=== PATIENT | male | born 1995 | race Hispanic/Latino ===

== ENCOUNTER 2017-03-28 21:30 | Emergency (ER) | payer BC ==
[2017-03-28] MEDS ORDERED: Ondansetron ODT 4 MG TAB ONE (21:47)
[2017-03-28] MEDS ORDERED: Acetaminophen 500 MG TAB ONE (21:50)
== END 2017-03-28 23:30 | disposition home or self-care (01) ==
LOC: ERS 21:30
DX: J11.1 Influenza due to unidentified influenza virus with other respiratory manifestations (principal); F17.210 Nicotine dependence, cigarettes, uncomplicated
CPT/HCPCS: 87804; 99283; Q0162

== ENCOUNTER 2018-12-26 13:07 | Observation (INO) | payer BC ==
[2018-12-26 13:56] LABS: Bacteria/HPF None Seen HPF (None Seen); Bilirubin Negative (Negative); Blood, Urine Negative (Negative); Clarity Clear (Clear); Glucose, Urine (Dipstick) Normal (Negative); Leukocyte Negative Leu/uL (Negative); Nitrite Negative (Negative); Protein, Urine (Dipstick) 30 mg/dL (Neg-Trace); RBC/HPF 0-3 HPF (0-3); Squamous Epithelial 0-3 HPF (0-3); Urobilinogen Normal mg/dL (Less than 2); WBC/HPF 0-3 HPF (0-3)
[2018-12-26] MEDS ORDERED: Acetaminophen 500 MG TAB ONE (13:59)
[2018-12-26 14:13] LABS: Mean Corpuscular HGB CONC 33.2 g/dL (32.0-36.0); Mean Corpuscular Hemoglobin 28.1 pg (27.0-31.0); Mean Corpuscular Volume 84.6 fL (78.0-98.0); Mean Platelet Volume 7.9 fL (7.4-10.4); Platelet Count 328 thou/uL (130-400); RBC Distribution Width 14.9 % (11.5-14.5); Red Blood Cell (RBC) Count 6.04 mill/uL (4.70-6.10); White Blood Cell (WBC) Count 20.8 thou/uL (4.8-10.8)
[2018-12-26 14:29] LABS: ALT (SGPT) 51 U/L (8-55); AST (SGOT) 36 U/L (5-34); Alkaline Phosphatase 83 U/L (40-110); Anion Gap 14 mmol/L (10-20); BUN (Urea Nitrogen) 20 mg/dL (8.9-20.6); Bilirubin, Total 0.6 mg/dL (0.2-1.2); Calc. Creatinine Clearance 0 mL/min (70-130); Carbon Dioxide 26 mmol/L (22-29); Chloride 104 mmol/L (98-107); Estimated GFR-MDRD 80; Globulin 3.5 g/dL (2.4-3.5); Glucose 114 mg/dL (70-105); Potassium 5.3 mmol/L (3.5-5.1); Protein, Total 8.5 g/dL (6.0-8.3); Sodium 139 mmol/L (136-145)
[2018-12-26 14:43] LABS: Anisocytosis SLIGHT = 6-15 cells (100X) (0-5/hpf); Band 7 % (5-11); Lymphocytes 1 % (21-51); MDiff Complete? YES; Monocytes 3 % (0-10); Neutrophil 89 % (42-75); Platelet Morphology Comment Appears Adequate
--- NOTE | 2018-12-26 15:33 | RAD ---
PORTABLE CHEST ONE VIEW: 12/26/18 at 2:31 p.m. HISTORY: Fever, abdominal pain, and vomiting. The heart size is normal. The lungs are expanded without focal areas of consolidations, pneumothorace s or pleural effusions. IMPRESSION: No radiographic evidence of acute cardiopulmonary process. POS: [facility]
[2018-12-26] MEDS ORDERED: metroNIDAZOLE 500 MG/100 ML BAG ONE (16:46)
[2018-12-26] MEDS ORDERED: Ondansetron PF 4 MG/2 ML Vial IVP PRN (19:30)
[2018-12-26] MEDS ORDERED: Acetaminophen 325 MG TAB PO PRN (19:30)
[2018-12-26] MEDS ORDERED: Ondansetron PF 4 MG/2 ML Vial ONE (19:31)
[2018-12-26 19:32] LABS: Lactic Acid 2.2 mmol/L (0.5-2.2)
--- NOTE | 2018-12-26 20:18 | PDOC.EVN ---
Event Note - Event Note Event Note: [id number]
[2018-12-26] MEDS: Sodium Chloride 0.9% 1,000 ML IV SCH (20:41)
[2018-12-26] MEDS: Famotidine/PF 20 mg/2ml Vial SLOW IVP SCH (20:41)
--- NOTE | 2018-12-26 20:42 | HP ---
CHIEF COMPLAINT: Vomiting and diarrhea. HISTORY OF PRESENT ILLNESS: Mr. Encarnacion is a 23-year-old male with no significant past medical history, presented to the emergency room with nausea and vomiting that started earlier this morning. The patient yesterday ate pizza with pepperoni and sausage donut. He started feeling sick this morning with vomiting and diarrhea. He also had a high fever. Initial workup in the emergency room, the patient had a WBC count of [id number]. Lactic acid elevated more than 3. The patient appears to be dehydrated. The patient is febrile, tachycardic. Septic workup done in the ED including blood cultures, and started on IV antibiotics and IV fluids. The patient is being admitted to hospital for further management. PAST MEDICAL HISTORY: No significant past medical history. PAST SURGICAL HISTORY: No surgical history. FAMILY HISTORY: Reviewed and noncontributory. HOME MEDICATIONS: None. ALLERGIES: NO KNOWN ALLERGIES. REVIEW OF SYSTEMS: Review of 14 systems negative except what is mentioned in the history of present illness. PHYSICAL EXAMINATION: GENERAL: The patient is awake, alert, in moderate distress. VITAL SIGNS: Blood pressure 117/58, heart rate 135, now it is 111, temperature 101, respiratory rate is 16. HEAD AND NECK: Normocephalic and atraumatic. NECK: Supple. No JVD. CHEST: Fair bilateral air entry. HEART: S1 and S2. Regular, tachycardic. ABDOMEN: Soft, nontender. Bowel sounds present. NEUROLOGIC: Awake, alert, oriented x3. Normal mood. Mucous membranes dry. LABORATORY DATA: As mentioned above in history of present illness. ASSESSMENT: 1. Acute gastroenteritis. 2. Sepsis secondary to acute gastroenteritis. 3. Lactic acidosis. 4. Dehydration. PLAN: 1. Admit. 2. Septic workup including blood cultures. 3. IV antibiotics. Continue with IV Cipro and Flagyl. 4. IV fluids. 5. DVT prophylaxis, early ambulation. 6. Expected length of stay at least 1 midnight if patient is stable, shows significant clinical improvement and able to tolerate p.o. Job ID: [id number]
[2018-12-26 21:45] VITALS: BMI 30.4
[2018-12-26] MEDS ORDERED: Ibuprofen 600 MG TAB PO PRN (23:11)
[2018-12-26] MEDS: metroNIDAZOLE 500 MG in Premix Bag 1 BAG IVPB SCH (23:56)
[2018-12-27] MEDS: metroNIDAZOLE 500 MG in Premix Bag 1 BAG IVPB SCH (05:17)
[2018-12-27] MEDS: Sodium Chloride 0.9% 1,000 ML IV SCH (05:21)
[2018-12-27 06:28] LABS: #Eosinphils 0.2 thou/uL (0.0-0.7); #Lymphocytes 1.2 thou/uL (1.20-3.40); #Monocytes 0.9 thou/uL (0.11-0.59); #Neutrophils 6.3 thou/uL (1.40-6.50); %Basophils 0.4 % (0.0-1.0); %Eosinophils 1.9 % (0.0-10.0); %Lymphocytes 14.2 % (21.0-51.0); %Monocytes 10.2 % (0.0-10.0); %Neutrophils 73.3 % (42.0-75.0); Hemoglobin 13.4 g/dL (14.0-18.0); Mean Corpuscular Hemoglobin 29.1 pg (27.0-31.0); Mean Corpuscular Volume 85.6 fL (78.0-98.0); Platelet Count 213 thou/uL (130-400); RBC Distribution Width 14.7 % (11.5-14.5); Red Blood Cell (RBC) Count 4.59 mill/uL (4.70-6.10); White Blood Cell (WBC) Count 8.6 thou/uL (4.8-10.8)
[2018-12-27 07:15] LABS: Anion Gap 11 mmol/L (10-20); BUN (Urea Nitrogen) 15 mg/dL (8.9-20.6); Calc. Creatinine Clearance 171 mL/min (70-130); Calcium 7.9 mg/dL (7.8-10.44); Carbon Dioxide 24 mmol/L (22-29); Chloride 104 mmol/L (98-107); Estimated GFR-MDRD Greater than 90; Glucose 95 mg/dL (70-105); Potassium 3.7 mmol/L (3.5-5.1); Sodium 135 mmol/L (136-145)
[2018-12-27] MEDS ORDERED: FLU VACC QS2019-20(6MOS UP)/PF 60 MCG/0.5 ML SYRINGE IM ONE (09:00)
[2018-12-27] MEDS: Famotidine/PF 20 mg/2ml Vial SLOW IVP SCH (11:00)
[2018-12-27 11:48] VITALS: BP 112/69; TEMP 97.6
--- NOTE | 2018-12-27 14:09 | DIS ---
DATE OF ADMISSION: 12/26/2018 DATE OF DISCHARGE: 12/27/2018 FINAL DIAGNOSES: 1. Acute gastroenteritis, resolved, most likely viral. 2. Dehydration, corrected. HOSPITAL COURSE: The patient was a 23-year-old male with complaints of vomiting, abdominal cramping and diarrhea. Apparently, he ate some pizza with pepperoni and sausage donut and he started feeling sick yesterday with vomiting and diarrhea. He also had high fever. His white count was up to 20,000. Lactic acid was elevated more than 3. The patient was dehydrated, tachycardic. He was started on IV antibiotics and IV fluids, Cipro and Flagyl. He got admitted to the hospital. He improved very quickly. The next day, everything subsided and his temperature is down to 97.6, pulse is 94, respirations 18, O2 saturation 96% on room air. His blood pressure is 112/69. He ate two meals without any problems. No nausea, no abdominal pain or diarrhea. This was most likely viral versus reaction to food he had yesterday. He is discharged home in good condition. He needs to follow up with his primary care physician in 1 week. He will stay on regular diet and activities as tolerated. The time of discharge is less than 30 minutes. Job ID: [id number]
== END 2018-12-27 13:15 | disposition home or self-care (01) ==
LOC: ERS 13:07 → SJJU 18:10
PROVIDERS: ADMIT Internal Medicine; ATTEND Internal Medicine
DX: K52.9 Noninfective gastroenteritis and colitis, unspecified (principal); A41.9 Sepsis, unspecified organism; E87.2 Acidosis; E86.0 Dehydration; F17.210 Nicotine dependence, cigarettes, uncomplicated
CPT/HCPCS: 36415; 71045; 80048; 80053; 81003; 81015; 83605; 85025; 87040; 87086; 87804; 96361; 96365; 96366; 96367; 96375; 96376; G0378; J0744; J2405; S0028

== ENCOUNTER 2019-08-29 12:42 | Emergency (ER) | payer BC ==
[2019-08-29] MEDS ORDERED: Fluorescein Opthalmic Strip ONE (13:33)
[2019-08-29] MEDS ORDERED: Proparacaine 0.5% Opth 15 ML BOT ONE (13:33)
== END 2019-08-29 14:40 | disposition home or self-care (01) ==
LOC: ERS 12:42
DX: H11.421 Conjunctival edema, right eye (principal); F17.210 Nicotine dependence, cigarettes, uncomplicated
CPT/HCPCS: 99283